=== PATIENT | male | born 1950 | race African-American/Black ===

== ENCOUNTER 2023-12-30 09:41 | Emergency (ER) | payer SELFPAY ==
[~2023-12-30] VITALS: Ht 167.6 cm; Wt 56.0 kg
[2023-12-30 09:45] VITALS: BP 180/90; PULSE 75; RESP 16; TEMP 98; O2SAT 100
== END 2023-12-30 10:14 | disposition home or self-care (01) ==
LOC: ER 09:41
DX: M54.9 Dorsalgia, unspecified (principal); Z76.5 Malingerer [conscious simulation]; Z98.890 Other specified postprocedural states
CPT/HCPCS: 99283